=== PATIENT | male | born 1975 | race Caucasian/White ===

== ENCOUNTER 2020-08-16 13:19 | Inpatient (IN) | payer SELFPAY ==
[~2020-08-16] VITALS: Ht 172.7 cm; Wt 104.5 kg
[2020-08-16] MEDS ORDERED: IBUPROFEN 400 MG TABLET. PO ONE (14:15)
[2020-08-16] MEDS ORDERED: IV NORMAL SALINE 1000ML BAG 1,000 ML IV ONE ×2 (14:15→15:45)
--- NOTE | 2020-08-16 14:20 | PHYS DOC ---
General Adult EDM: Chief Complaint: FEVER HPI: HPI: Patient is a 44 year old male who presents with found out he was COVID positive last Tuesday. He states he is had symptoms for the last 7 days. He states he has a cough and fever and lack of appetite. He states he has not been eating or drinking much. Patient is tachycardic at 114. He states he does not have any pain. Patient denies nausea, vomiting, abdominal pain, dizziness, headache, chest pain, shortness of air, numbness or tingling, focal weakness, vision changes. He denies any past medical history and states he is not taking any medicine daily. He states that he took ibuprofen last yesterday. Patient is febrile upon arrival. Review of Systems: Review of Systems: Constitutional: + fever or chills. [] Eyes: Denies change in visual acuity. [] HENT: Denies nasal congestion or sore throat. [] Respiratory: + cough or denies shortness of breath. [] Cardiovascular: Denies chest pain or edema. [] GI: Denies abdominal pain, nausea, vomiting, bloody stools or diarrhea. +Lack of appetite[] : Denies dysuria. [] Musculoskeletal: Denies back pain or joint pain. +Generalized weakness[] Integument: Denies rash. [] Neurologic: Denies headache, focal weakness or sensory changes. [] Endocrine: Denies polyuria or polydipsia. [] Lymphatic: Denies swollen glands. [] Psychiatric: Denies depression or anxiety. [] Heart Score: Risk Factors: Risk Factors: DM, Current or recent (<one month) smoker, HTN, HLP, family history of CAD, obesity. Risk Scores: Score 0 - 3: 2.5% MACE over next 6 weeks - Discharge Home Score 4 - 6: 20.3% MACE over next 6 weeks - Admit for Clinical Observation Score 7 - 10: 72.7% MACE over next 6 weeks - Early Invasive Strategies Allergies: Allergies: Allergies Coded Allergies Type Severity Reaction Last Updated Verified No Known Drug Allergies 08/16/20 No Physical Exam: PE: Constitutional: Well developed, well nourished, no acute distress, non-toxic appearance. [] HENT: Normocephalic, atraumatic, bilateral external ears normal, oropharynx moist, no oral exudates, nose normal. [] Eyes: PERRLA, EOMI, conjunctiva normal, no discharge. [] Neck: Normal range of motion, no tenderness, supple, no stridor. [] Cardiovascular:Heart rate regular rhythm, no murmur [] Lungs & Thorax: Bilateral breath sounds clear to auscultation [] Abdomen: Bowel sounds normal, soft, no tenderness, no masses, no pulsatile masses. [] Skin: Warm, dry, no erythema, no rash. [] Back: No tenderness, no CVA tenderness. [] Extremities: No tenderness, no cyanosis, no clubbing, ROM intact, no edema. [] Neurologic: Alert and oriented X 3, normal motor function, normal sensory function, no focal deficits noted. [] Psychologic: Affect normal, judgement normal, mood normal. Normal Physical Exam[] EKG: EK and read by Dr Wallace as Sinus Tachycardia and no STEMI[] Radiology/Procedures: Radiology/Procedures: [] Impression: [address] [address] IMAGING REPORT Signed PATIENT: ROME BARLOW JACCOUNT: [id number] : 1975 LOCATION: ER AGE: 44 SEX: M EXAM STATUS: REG ER ORD. PHYSICIAN: KELLY BARROSO APRN REASON: covid +, soa PROCEDURE: PORTABLE CHEST 1V EXAMINATION: PORTABLE CHEST 1V CLINICAL HISTORY: Reason: covid +, soa / Spl. Instructions: / History: EXAM DATE/TIME: 08/16/2020 2:14 PM COMPARISON: None FINDINGS: Lines, Tubes, and Devices: None. Cardiomediastinal Silhouette: Within normal limits. Lungs and Pleura: Pulmonary hypoexpansion without evidence of focal airspace consolidation or pleural effusion. Bones and Soft Tissues: No acute osseous abnormality. IMPRESSION: Pulmonary hypoexpansion without evidence of acute cardiopulmonary abnormality. Electronically signed by: Khris Crooks DO (08/16/2020 3:50 PM) [id number] DICTATED and SIGNED BY: KHRIS CROOKS DO DATE: 08/16/[address] [address] IMAGING REPORT Signed PATIENT: ROME BARLOW JACCOUNT: [id number] : 1975 LOCATION: ER AGE: 44 SEX: M EXAM STATUS: REG ER ORD. PHYSICIAN: KELLY BARROSO APRN REASON: LOW o2 PROCEDURE: CT ANGIO CHEST W ABD PEL W/ EXAM: CT Pulmonary Angiogram INDICATION: Reason: LOW o2 / Spl. Instructions: / History: TECHNIQUE: Multi-detector row images were acquired from the thoracic inlet through the upper abdomen with the use of IV contrast. Sagittal and coronal images were acquired from the transaxial data. MIP images of the pulmonary arteries were obtained. All CT scans performed at this facility utilize dose optimization techniques as appropriate to the exam, including the following: Automated exposure control and adjustment of the mA and/or KV according to patient size (this includes techniques or standardized protocols for targeted exams where dose is indication/reason for exam). IV CONTRAST: Administered COMPARISON: Portable chest x-ray from earlier the same day. FINDINGS: There is respiratory motion artifact that degrades detail. PULMONARY ARTERIES: No pulmonary emboli are identified. CARDIOVASCULAR: Mild cardiac enlargement. Aorta is normal caliber. MEDIASTINUM & RAINE: No adenopathy or masses. Mild enlargement of the right interlobar lymph nodes up to 1.2 cm short axis. Mild reactive bilateral left greater than right hilar adenopathy. LUNGS: Patchy groundglass opacities are present bilaterally. PLEURAL SPACE: No pleural effusions or pneumothorax. OSSEOUS & SOFT TISSUE: Unremarkable ABDOMEN: The visualized portions of the upper abdomen are unremarkable. IMPRESSION: 1. Cardiomegaly but no evidence of pulmonary emboli. 2. Patchy groundglass opacities in the lungs in a pattern suspicious for atypical pneumonia, with associated reactive adenopathy.. EXAM: CT Abdomen and Pelvis with IV contrast INDICATION: Reason: LOW o2 / Spl. Instructions: / History: TECHNIQUE: Multi-detector row CT images were acquired from the lung bases through the abdomen and pelvis with the use of IV contrast. Sagittal and coronal images were acquired from the transaxial data. All CT scans performed at this facility utilize dose optimization techniques as appropriate to the exam, including the following: Automated exposure control and adjustment of the mA and/or KV according to patient size (this includes techniques or standardized protocols for targeted exams where dose is indication/reason for exam). IV CONTRAST: Administered ORAL CONTRAST: Not administered COMPARISON: None FINDINGS: LOWER CHEST: Unremarkable LIVER: Diffuse hypoattenuation suggesting fatty infiltration. BILIARY SYSTEM: Gallbladder is unremarkable. Bile ducts are not dilated. PANCREAS: Fatty replacement of the pancreas. SPLEEN: Unremarkable ADRENALS: Unremarkable KIDNEYS & URETERS: Unremarkable BLADDER: Unremarkable REPRODUCTIVE ORGANS: Unremarkable GASTROINTESTINAL: The stomach, small bowel, and colon are unremarkable. The appendix is normal. MESENTERY/PERITONEUM/RETROPERITONEUM: Unremarkable VASCULAR: Unremarkable LYMPH NODES: No adenopathy OSSEOUS & SOFT TISSUES: Unremarkable IMPRESSION: No acute findings in the abdomen or pelvis besides hepatic steatosis. There is incidental fatty replacement of the pancreas. Correlate for any evidence of exocrine or endocrine pancreatic insufficiency. Discussed with Dr. Do by telephone at 6:53 PM on 08/16/2020 Electronically signed by: Peg Matute MD (08/16/2020 6:55 PM) [facility] [place] DICTATED and SIGNED BY: PEG MATUTE MD DATE: 08/16/201854 Course & Med Decision Making: Course & Med Decision Making Pertinent Labs and Imaging studies reviewed. (See chart for details) COVID-19 CRITERIA: The patient was evaluated during the global COVID-19 pandemic, and that diagnosis was suspected/considered upon their initial presentation. Their evaluation, treatment and testing was consistent with current guidelines for patients who present with complaints or symptoms that may be related to COVID-19. See HPI. Ambulatory with a steady gait. Speaks in full complete sentences. Lungs are clear to auscultation in all lobes. Skin pink warm and dry. Tachycardic. Alert and oriented x4. Urinalysis shows nitrites. Patient is satting at 91% when sitting on room air. Patient is 90% when walking around the room. Continues to be tachycardic and tachypneic. I have ordered Rocephin for the patient. Due to the patient's low saturation and nitrites in his urine without urinary symptoms and he continues to be tachycardic, a CT angio chest and a CT abdomen pelvis is ordered. I have spoken to Dr. Carpio for admission. [] Alisson Disclaimer: [place] Disclaimer: This electronic medical record was generated, in whole or in part, using a voice recognition dictation system. COVID-19 Patient Risks: Age 65 or older: No Sign of co-morbidity: Yes Exp to person + for COVID: Yes Exp to PUI: No Travel from affected area: No Lower respiratory symptoms: Yes Fever: Yes Other: Yes (COVID +) PPE Use: Full PPE with N95 mask or PAPR: Yes Departure Departure Impression: Primary Impression: COVID-19 Additional Impressions: UTI (urinary tract infection) Qualified Codes: N39.0 - Urinary tract infection, site not specified Hypoxia Disposition: 09 ADMITTED INPATIENT Condition: STABLE KELLY BARROSO APRN Aug 16, 2020 14:20
[2020-08-16 14:43] LABS: BASO % 1 % (0-3); EOS % 0 % (0-3); HEMATOCRIT 41.7 % (39.0-53.0); HEMOGLOBIN 14.3 g/dL (13.0-17.5); LYMPH # 1.1 x10^3/uL (1.0-4.8); LYMPH % 22 % (24-48); MEAN CORPUSCULAR HEMOGLOBIN 28 pg (25-35); MEAN CORPUSCULAR HGB CONC 34 g/dL (31-37); MEAN CORPUSCULAR VOLUME 81 fL (79-100); MONO # 0.5 x10^3/uL (0.0-1.1); MONO % 10 % (0-9); NEUT # 3.3 x10^3/uL (1.8-7.7); NEUT % 68 % (31-73); PLATELET COUNT 136 x10^3/uL (140-400); RED BLOOD COUNT 5.13 x10^6/uL (4.30-5.70); RED CELL DISTRIBUTION WIDTH 14.3 % (11.5-14.5); WHITE BLOOD COUNT 4.9 x10^3/uL (4.0-11.0)
[2020-08-16 14:53] LABS: CALCIUM 8.2 mg/dL (8.5-10.1); CREATININE 0.9 mg/dL (0.7-1.3); GFR 91.3; POTASSIUM 3.5 mmol/L (3.5-5.1)
[2020-08-16 14:57] LABS: ALBUMIN 3.3 g/dL (3.4-5.0); ALBUMIN/GLOBULIN RATIO 0.8 (1.0-1.7); TOTAL BILIRUBIN 0.6 mg/dL (0.2-1.0); TOTAL PROTEIN 7.4 g/dL (6.4-8.2)
--- NOTE | 2020-08-16 15:53 | RAD ---
EXAMINATION: PORTABLE CHEST 1V CLINICAL HISTORY: Reason: covid +, soa / Spl. Instructions: / History: EXAM DATE/TIME: 08/16/2020 2:14 PM COMPARISON: None FINDINGS: Lines, Tubes, and Devices: None. Cardiomediastinal Silhouette: Within normal limits. Lungs and Pleura: Pulmonary hypoexpansion without evidence of focal airspace consolidation or pleural effusion. Bones and Soft Tissues: No acute osseous abnormality. IMPRESSION: Pulmonary hypoexpansion without evidence of acute cardiopulmonary abnormality. Electronically signed by: Khris Woodard DO (08/16/2020 3:50 PM) [id number]
[2020-08-16 16:08] LABS: BILIRUBIN,URINE SMALL (NEG); CLARITY,URINE CLEAR; COLOR,URINE AMBER; NITRITE,URINE POSITIVE (NEG); PROTEIN,URINE 30 mg/dL (NEG-TRACE)
[2020-08-16 16:13] LABS: BACTERIA,URINE MANY /HPF (0-FEW); RBC,URINE 0 /HPF (0-2)
[2020-08-16] MEDS ORDERED: cefTRIAXone IV Push 1 GM VIAL. IVP ONE (16:30)
[2020-08-16] MEDS ORDERED: CONTRAST GIVEN. MC PRN (17:15)
[2020-08-16] MEDS ORDERED: IOHEXOL 350 MG/ML 100 ML VIAL. IV ONE (17:15)
--- NOTE | 2020-08-16 17:58 | PDOC1 ---
History and Physical Date of Admission Date of Admission DATE: 08/16/20 TIME: 17:55 Identification/Chief Complaint Chief Complaint Fever Source Source: Patient History of Present Illness History of Present Illness Mr Roberts is a 44yo M w/ PMHx morbid obesity, autism spectrum disorder who comes to ED c/o shortness of breath. Tested positive for COVID 19 last 08/11/2020 at a [facility], was informed about the results on 08/13/2020. He has noted fever, decreased appetite, shortness ofb breath and cough for the last week. The patient was brought into the hospital by his father due to fever. No N/V/D or abdominal pain. No chest pain CTPA with bilateral patchy ground-glass infiltrates with adenopathy and incidental fatty liver and fatty infiltration of pancreas noted as well. Labs with WBC 5.9, hemoglobin 14.3 and platelets 136. LFTs are normal. Albumin 3.3. D dimer mildly elevated. Admitted for further care RR 26/min and temp 100.3F in ED. Past Medical History Psych: Other (Autism spectrum disorder) Past Surgical History Past Surgical History: No pertinent history Family History Family History: High Cholestrol, Hypertension Social History Smoke: No ALCOHOL: none Drugs: None Current Medications Current Medications Current Medications Sodium Chloride 1,000 ml @ 1,000 mls/hr 1X ONCE IV Last administered on 08/16/20at 14:43; Start 08/16/20 at 14:15; Stop 08/16/20 at 15:14; Status DC Ibuprofen (Motrin) 800 mg 1X ONCE PO Last administered on 08/16/20at 14:41; Start 08/16/20 at 14:15; Stop 08/16/20 at 14:17; Status DC Sodium Chloride 1,000 ml @ 1,000 mls/hr 1X ONCE IV Last administered on 08/16/20at 15:54; Start 08/16/20 at 15:45; Stop 08/16/20 at 16:44; Status DC Ceftriaxone Sodium (Rocephin) 1 gm 1X ONCE IVP Last administered on 08/16/20at 17:38; Start 08/16/20 at 16:30; Stop 08/16/20 at 16:31; Status DC Iohexol (Omnipaque 350 Mg/ml) 100 ml 1X ONCE IV Last administered on 10/3/20at 17:36; Start 08/16/20 at 17:15; Stop 08/16/20 at 17:16; Status DC Info (CONTRAST GIVEN -- Rx MONITORING) 1 each PRN DAILY PRN MC SEE COMMENTS; Start 08/16/20 at 17:15; Stop 08/18/20 at 17:14 Allergies Allergies: Coded Allergies: No Known Drug Allergies (Unverified , 08/16/20) ROS General: YES: Chills, Fatigue, Malaise, Appetite; No: Night Sweats, Other PSYCHOLOGICAL ROS: YES: Anxiety; No: Behavioral Disorder, Concentration difficultie, Decreased libido, Depression, Disorientation, Hallucinations, Hostility, Irritablity, Memory difficulties, Mood Swings, Obsessive thoughts, Physical abuse, Sexual abuse, Sleep disturbances, Suicidal ideation, Other Eyes: No Blurry vision, No Decreased vision, No Double vision, No Dry eyes, No Excessive tearing, No Eye Pain, No Itchy Eyes, No Loss of vision, No Photophobia, No Scotomata, No Uses contacts, No Uses glasses, No Other HEENT: YES: Heacaches; No: Visual Changes, Hearing change, Nasal congestion, Nasal discharge, Oral lesions, Sinus pain, Sore Throat, Epistaxis, Sneezing, Snoring, Tinnitus, Vertigo, Vocal changes, Other ALLERGY AND IMMUNOLOGY: No: Hives, Insect Bite Sensitivity, Itchy/Watery Eyes, Nasal Congestion, Post Nasal Drip, Seasonal Allergies, Other Hematological and Lymphatic: No: Bleeding Problems, Blood Clots, Blood Transfusions, Brusing, Night Sweats, Pallor, Swollen Lymph Nodes, Other ENDOCRINE: No: Breast Changes, Galactorrhea, Hair Pattern Changes, Hot Flashes, Malaise/lethargy, Mood Swings, Palpitations, Polydipsia/polyuria, Skin Changes, Temperature Intolerance, Unexpected Weight Changes, Other Breast: No New/Changing Breast Lumps, No Nipple changes, No Nipple discharge, No Other Respiratory: YES: Cough, Shortness of breath, SOB with excertion, Tachypnea; No: Hemoptysis, Orthopnea, Pleuritic Pain, Sputum Changes, Stridor, Wheezing, Other Cardiovascular: No Chest Pain, No Palpitations, No Orthopnea, No Paroxysmal Noc. Dyspnea, No Edema, No Lt Headedness, No Other Gastrointestinal: Yes Nausea; No Vomiting, No Abdominal Pain, No Diarrhea, No Constipation, No Melena, No Hematochezia, No Other Genitourinary: No Dysuria, No Frequency, No Incontinence, No Hematuria, No Retention, No Discharge, No Urgency, No Pain, No Flank Pain, No Other, No , No , No , No , No , No , No Musculoskeletal: No Gait Disturbance, No Joint Pain, No Joint Stiffness, No Joint Swelling, No Muscle Pain, No Muscular Weakness, No Pain In:, No Swelling In:, No Other Neurological: No Behavorial Changes, No Bowel/Bladder ControlChng, No Confusion, No Dizziness, No Gait Disturbance, No Headaches, No Impaired Coord/balance, No Memory Loss, No Numbness/Tingling, No Seizures, No Speech Problems, No Tremors, No Visual Changes, No Weakness, No Other Skin: No Dry Skin, No Eczema, No Hair Changes, No Lumps, No Mole Changes, No Mottling, No Nail Changes, No Pruritus, No Rash, No Skin Lesion Changes, No Other, No Acne Physical Exam General: Alert, Oriented X3, Cooperative, moderate distress HEENT: Atraumatic, PERRLA, EOMI, Mucous membr. moist/pink Lungs: Other (bilateral faint crackles) Heart: S1S2, RRR, no thrills, no rubs, no gallops, no murmurs Abdomen: Normal bowel sounds, Soft, No tenderness, No hepatosplenomegaly, No masses Rectal Exam: not examined Extremities: No clubbing, No cyanosis, No edema, Normal pulses, No tenderness/swelling Skin: No rashes, No breakdown, No significant lesion Neuro: Normal gait, Normal speech, Strength at 5/5 X4 ext, Normal tone, Sensation intact, Cranial nerves 3-12 NL, Reflexes 2+ Psych/Mental Status: Mental status NL, Mood NL, Other (Avoidant, no eye contact) Vitals Vitals Vital Signs Date Time Temp Pulse Resp B/P (MAP) Pulse Ox O2 Delivery O2 Flow Rate FiO2 08/16/20 14:10 100.3 111 26 143/80 (101) 95 Room Air 100.3 Labs Labs Laboratory Tests Test 08/16/20 14:33 08/16/20 15:50 White Blood Count 4.9 x10^3/uL (4.0-11.0) Red Blood Count 5.13 x10^6/uL (4.30-5.70) Hemoglobin 14.3 g/dL (13.0-17.5) Hematocrit 41.7 % (39.0-53.0) Mean Corpuscular Volume 81 fL (79-100) Mean Corpuscular Hemoglobin 28 pg (25-35) Mean Corpuscular Hemoglobin Concent 34 g/dL (31-37) Red Cell Distribution Width 14.3 % (11.5-14.5) Platelet Count 136 x10^3/uL (140-400) Neutrophils (%) (Auto) 68 % (31-73) Lymphocytes (%) (Auto) 22 % (24-48) Monocytes (%) (Auto) 10 % (0-9) Eosinophils (%) (Auto) 0 % (0-3) Basophils (%) (Auto) 1 % (0-3) Neutrophils # (Auto) 3.3 x10^3/uL (1.8-7.7) Lymphocytes # (Auto) 1.1 x10^3/uL (1.0-4.8) Monocytes # (Auto) 0.5 x10^3/uL (0.0-1.1) Eosinophils # (Auto) 0.0 x10^3/uL (0.0-0.7) Basophils # (Auto) 0.0 x10^3/uL (0.0-0.2) Sodium Level 135 mmol/L (136-145) Potassium Level 3.5 mmol/L (3.5-5.1) Chloride Level 98 mmol/L (98-107) Carbon Dioxide Level 28 mmol/L (21-32) Anion Gap 9 (6-14) Blood Urea Nitrogen 10 mg/dL (8-26) Creatinine 0.9 mg/dL (0.7-1.3) Estimated GFR (Cockcroft-Gault) 91.3 BUN/Creatinine Ratio 11 (6-20) Glucose Level 89 mg/dL (70-99) Lactic Acid Level 1.1 mmol/L (0.4-2.0) Calcium Level 8.2 mg/dL (8.5-10.1) Total Bilirubin 0.6 mg/dL (0.2-1.0) Aspartate Amino Transf (AST/SGOT) 34 U/L (15-37) Alanine Aminotransferase (ALT/SGPT) 36 U/L (16-63) Alkaline Phosphatase 60 U/L (46-116) Total Protein 7.4 g/dL (6.4-8.2) Albumin 3.3 g/dL (3.4-5.0) Albumin/Globulin Ratio 0.8 (1.0-1.7) Urine Collection Type Void Urine Color Ivone Urine Clarity Clear Urine pH 6.0 (<5.0-8.0) Urine Specific [place] 1.025 (1.000-1.030) Urine Protein 30 mg/dL (NEG-TRACE) Urine Glucose (UA) Negative mg/dL (NEG) Urine Ketones (Stick) >=80 mg/dL (NEG) Urine Blood Negative (NEG) Urine Nitrite Positive (NEG) Urine Bilirubin Small (NEG) Urine Urobilinogen Dipstick 4.0 mg/dL (0.2 mg/dL) Urine Leukocyte Esterase Small (NEG) Urine RBC 0 /HPF (0-2) Urine WBC 5-10 /HPF (0-4) Urine Squamous Epithelial Cells None /LPF Urine Bacteria Many /HPF (0-FEW) Urine Mucus Slight /LPF Laboratory Tests Test 08/16/20 14:33 08/16/20 15:50 White Blood Count 4.9 x10^3/uL (4.0-11.0) Red Blood Count 5.13 x10^6/uL (4.30-5.70) Hemoglobin 14.3 g/dL (13.0-17.5) Hematocrit 41.7 % (39.0-53.0) Mean Corpuscular Volume 81 fL (79-100) Mean Corpuscular Hemoglobin 28 pg (25-35) Mean Corpuscular Hemoglobin Concent 34 g/dL (31-37) Red Cell Distribution Width 14.3 % (11.5-14.5) Platelet Count 136 x10^3/uL (140-400) Neutrophils (%) (Auto) 68 % (31-73) Lymphocytes (%) (Auto) 22 % (24-48) Monocytes (%) (Auto) 10 % (0-9) Eosinophils (%) (Auto) 0 % (0-3) Basophils (%) (Auto) 1 % (0-3) Neutrophils # (Auto) 3.3 x10^3/uL (1.8-7.7) Lymphocytes # (Auto) 1.1 x10^3/uL (1.0-4.8) Monocytes # (Auto) 0.5 x10^3/uL (0.0-1.1) Eosinophils # (Auto) 0.0 x10^3/uL (0.0-0.7) Basophils # (Auto) 0.0 x10^3/uL (0.0-0.2) Sodium Level 135 mmol/L (136-145) Potassium Level 3.5 mmol/L (3.5-5.1) Chloride Level 98 mmol/L (98-107) Carbon Dioxide Level 28 mmol/L (21-32) Anion Gap 9 (6-14) Blood Urea Nitrogen 10 mg/dL (8-26) Creatinine 0.9 mg/dL (0.7-1.3) Estimated GFR (Cockcroft-Gault) 91.3 BUN/Creatinine Ratio 11 (6-20) Glucose Level 89 mg/dL (70-99) Lactic Acid Level 1.1 mmol/L (0.4-2.0) Calcium Level 8.2 mg/dL (8.5-10.1) Total Bilirubin 0.6 mg/dL (0.2-1.0) Aspartate Amino Transf (AST/SGOT) 34 U/L (15-37) Alanine Aminotransferase (ALT/SGPT) 36 U/L (16-63) Alkaline Phosphatase 60 U/L (46-116) Total Protein 7.4 g/dL (6.4-8.2) Albumin 3.3 g/dL (3.4-5.0) Albumin/Globulin Ratio 0.8 (1.0-1.7) Urine Collection Type Void Urine Color Ivone Urine Clarity Clear Urine pH 6.0 (<5.0-8.0) Urine Specific [place] 1.025 (1.000-1.030) Urine Protein 30 mg/dL (NEG-TRACE) Urine Glucose (UA) Negative mg/dL (NEG) Urine Ketones (Stick) >=80 mg/dL (NEG) Urine Blood Negative (NEG) Urine Nitrite Positive (NEG) Urine Bilirubin Small (NEG) Urine Urobilinogen Dipstick 4.0 mg/dL (0.2 mg/dL) Urine Leukocyte Esterase Small (NEG) Urine RBC 0 /HPF (0-2) Urine WBC 5-10 /HPF (0-4) Urine Squamous Epithelial Cells None /LPF Urine Bacteria Many /HPF (0-FEW) Urine Mucus Slight /LPF Images Images CXR: CT Angiogram Chest/abdomen/pelvis: There is respiratory motion artifact that degrades detail. PULMONARY ARTERIES: No pulmonary emboli are identified. CARDIOVASCULAR: Mild cardiac enlargement. Aorta is normal caliber. MEDIASTINUM & RAINE: No adenopathy or masses. Mild enlargement of the right interlobar lymph nodes up to 1.2 cm short axis. Mild reactive bilateral left greater than right hilar adenopathy. LUNGS: Patchy groundglass opacities are present bilaterally. PLEURAL SPACE: No pleural effusions or pneumothorax. OSSEOUS & SOFT TISSUE: Unremarkable ABDOMEN: The visualized portions of the upper abdomen are unremarkable. IMPRESSION: 1. Cardiomegaly but no evidence of pulmonary emboli. 2. Patchy groundglass opacities in the lungs in a pattern suspicious for atypical pneumonia, with associated reactive adenopathy. CT Abdomen and Pelvis with IV contrast LOWER CHEST: Unremarkable LIVER: Diffuse hypoattenuation suggesting fatty infiltration. BILIARY SYSTEM: Gallbladder is unremarkable. Bile ducts are not dilated. PANCREAS: Fatty replacement of the pancreas. SPLEEN: Unremarkable ADRENALS: Unremarkable KIDNEYS & URETERS: Unremarkable BLADDER: Unremarkable REPRODUCTIVE ORGANS: Unremarkable GASTROINTESTINAL: The stomach, small bowel, and colon are unremarkable. The appendix is normal. MESENTERY/PERITONEUM/RETROPERITONEUM: Unremarkable VASCULAR: Unremarkable LYMPH NODES: No adenopathy OSSEOUS & SOFT TISSUES: Unremarkable IMPRESSION: No acute findings in the abdomen or pelvis besides hepatic steatosis.There is incidental fatty replacement of the pancreas. Correlate for any evidence of exocrine or endocrine pancreatic insufficiency. VTE Prophylaxis Ordered VTE Prophylaxis Devices: No VTE Pharmacological Prophylaxi: Yes Assessment/Plan Assessment/Plan A/P: Fevers - COVID 19 related. Will treat expectantly COVID 19 - with pneumonia. No hypoxia, will monitor. thromboprophylaxis. Consult Pulm Fatty liver - likely related to weight Elevated d dimer Autism spectrum disorder - mild, will give prn lorazepam for anxiety related to this Morbid obesity - counseled on weight loss, diet exercise Sepsis - due to COVID 19 pneumonia. Will treat expectantly, monitor for O2 desaturations FEN - General diet PPX - lovenox FULL CODE Dispo - Inpatient will monitor O2 levels to asses need for steroids or FFP Justifications for Admission Other Justification ROME LANDIS MD Aug 16, 2020 17:58
[2020-08-16] MEDS ORDERED: ACETAMINOPHEN 325 MG TABLET. PO PRN (18:15)
[2020-08-16] MEDS ORDERED: ONDANSETRON PF 4 MG/2 ML VIAL. IV PRN (18:15)
--- NOTE | 2020-08-16 18:58 | RAD ---
EXAM: CT Pulmonary Angiogram INDICATION: Reason: LOW o2 / Spl. Instructions: / History: TECHNIQUE: Multi-detector row images were acquired from the thoracic inlet through the upper abdomen with the use of IV contrast. Sagittal and coronal images were acquired from the transaxial data. MIP images of the pulmonary arteries were obtained. All CT scans performed at this facility utilize dose optimization techniques as appropriate to the exam, including the following: Automated exposure control and adjustment of the mA and/or KV according to patient size (this includes techniques or standardized protocols for targeted exams where dose is indication/reason for exam). IV CONTRAST: Administered COMPARISON: Portable chest x-ray from earlier the same day. FINDINGS: There is respiratory motion artifact that degrades detail. PULMONARY ARTERIES: No pulmonary emboli are identified. CARDIOVASCULAR: Mild cardiac enlargement. Aorta is normal caliber. MEDIASTINUM & RAINE: No adenopathy or masses. Mild enlargement of the right interlobar lymph nodes up to 1.2 cm short axis. Mild reactive bilateral left greater than right hilar adenopathy. LUNGS: Patchy groundglass opacities are present bilaterally. PLEURAL SPACE: No pleural effusions or pneumothorax. OSSEOUS & SOFT TISSUE: Unremarkable ABDOMEN: The visualized portions of the upper abdomen are unremarkable. IMPRESSION: 1. Cardiomegaly but no evidence of pulmonary emboli. 2. Patchy groundglass opacities in the lungs in a pattern suspicious for atypical pneumonia, with associated reactive adenopathy.. EXAM: CT Abdomen and Pelvis with IV contrast INDICATION: Reason: LOW o2 / Spl. Instructions: / History: TECHNIQUE: Multi-detector row CT images were acquired from the lung bases through the abdomen and pelvis with the use of IV contrast. Sagittal and coronal images were acquired from the transaxial data. All CT scans performed at this facility utilize dose optimization techniques as appropriate to the exam, including the following: Automated exposure control and adjustment of the mA and/or KV according to patient size (this includes techniques or standardized protocols for targeted exams where dose is indication/reason for exam). IV CONTRAST: Administered ORAL CONTRAST: Not administered COMPARISON: None FINDINGS: LOWER CHEST: Unremarkable LIVER: Diffuse hypoattenuation suggesting fatty infiltration. BILIARY SYSTEM: Gallbladder is unremarkable. Bile ducts are not dilated. PANCREAS: Fatty replacement of the pancreas. SPLEEN: Unremarkable ADRENALS: Unremarkable KIDNEYS & URETERS: Unremarkable BLADDER: Unremarkable REPRODUCTIVE ORGANS: Unremarkable GASTROINTESTINAL: The stomach, small bowel, and colon are unremarkable. The appendix is normal. MESENTERY/PERITONEUM/RETROPERITONEUM: Unremarkable VASCULAR: Unremarkable LYMPH NODES: No adenopathy OSSEOUS & SOFT TISSUES: Unremarkable IMPRESSION: No acute findings in the abdomen or pelvis besides hepatic steatosis. There is incidental fatty replacement of the pancreas. Correlate for any evidence of exocrine or endocrine pancreatic insufficiency. Discussed with Dr. Do by telephone at 6:53 PM on 08/16/2020 Electronically signed by: Daniel Matute MD (08/16/2020 6:55 PM) [facility] [place]
[2020-08-16 20:50] VITALS: BP 127/77
[2020-08-16] MEDS ORDERED: cefTRIAXone IV Push 1 GM VIAL. IVP SCH (22:30)
--- NOTE | 2020-08-16 22:41 | CONS ---
DATE OF CONSULTATION: 08/16/2020 PULMONARY CONSULTATION ATTENDING PHYSICIAN: Florentin Carpio MD REASON FOR CONSULTATION: COVID-19 pneumonia. HISTORY OF PRESENT ILLNESS: The patient is a 44-year-old male who has no significant tobacco history. He was tested positive for COVID last Tuesday. The patient states symptoms have been present for last 7 days. He has a fever and a cough and lack of appetite. The patient was brought into the hospital due to fever. Denies any increased shortness of breath. No nausea, vomiting. No abdominal pain, no diarrhea, no chest pain. He denies any history of tobacco use or asthma. The patient underwent a CT chest, abdomen and pelvis. I have reviewed the CT chest. There are patchy ground-glass opacities in the lungs, suspicious for COVID-19 pneumonia. There was mild reactive adenopathy. I did the consultation via telemedicine. PAST MEDICAL HISTORY: Significant for no chronic medical problems. PAST SURGICAL HISTORY: No recent surgeries. ALLERGIES: None. CURRENT MEDICATIONS: Reviewed as listed in the [facility]AD including Rocephin, which he received in the ER. REVIEW OF SYSTEMS: Ten point system obtained. Pertinent positives discussed in my history of present illness, otherwise noncontributory. All systems that were negative were reviewed as well. SOCIAL HISTORY: No history of tobacco use. FAMILY HISTORY: Noncontributory to lungs. PHYSICAL EXAMINATION: VITAL SIGNS: Reviewed. He is afebrile now, but he had a T-max of 100.3 on admission. Pulse ox 93-95% on room air. GENERAL: Visual exam done. He does not appear to be in any obvious respiratory distress. SKIN: No obvious skin rash. EXTREMITIES: No leg edema. LABORATORY DATA: Reviewed. White cell count 5.9, hemoglobin 14.3 and platelets are 136. LFTs are normal. Albumin 3.3. IMPRESSION: 1. Dyspnea secondary to COVID-19 pneumonia,. [address] chest secondary to COVID-19 pneumonia with bilateral patchy infiltrates, which are ground-glass. 3. No significant tobacco history or asthma. RECOMMENDATIONS: 1. The patient is clinically stable. He is on room air and is not hypoxic. At this point, I will withhold steroids or plasma. 2. We will monitor the clinical course. 3. Continue empiric antibiotic. 4. We will be available for any further recommendations if the patient's clinical condition changes. 5. If the patient remains afebrile in the next 24-48 hours, then he could be discharged. BECCA NORTH MD DR: MAINE/leonarda JOB#: [id number] / [id number]
[2020-08-16] MEDS ORDERED: guaiFENesin DM 200MG/20MG 10 ML SYRUP PO PRN (23:00)
[2020-08-16 23:05] VITALS: BP 145/79
[2020-08-17 03:05] VITALS: BP 140/76
[2020-08-17 07:15] VITALS: BP 129/69
--- NOTE | 2020-08-17 08:55 | PDOC ---
[employer] PROGRESS NOTE Date of Service DOS: DATE: 08/17/20 TIME: 08:54 Chief Complaint Chief Complaint A/P: Fevers - COVID 19 related. Will treat expectantly COVID 19 - with pneumonia. No hypoxia, will monitor. thromboprophylaxis. Consult Pulm Fatty liver - likely related to weight Elevated d dimer Autism spectrum disorder - mild, will give prn lorazepam for anxiety related to this Morbid obesity - counseled on weight loss, diet exercise Sepsis - due to COVID 19 pneumonia. Will treat expectantly, monitor for O2 desaturations UTI in male - will d/c on cefdinir 14 caps FEN - General diet PPX - lovenox FULL CODE Dispo - Inpatient will monitor O2 levels to asses need for steroids or FFP History of Present Illness History of Present Illness Mr Roberts is a 44yo M w/ PMHx morbid obesity, autism spectrum disorder who comes to ED c/o shortness of breath. Tested positive for COVID 19 last 08/11/2020 at a [facility], was informed about the results on 08/13/2020. He has noted fever, decreased appetite, shortness of breath and cough for the last week. The patient was brought into the hospital by his father due to fever. No N/V/D or abdominal pain. No chest pain. CTPA with bilateral patchy ground-glass infiltrates with adenopathy and incidental fatty liver and fatty infiltration of pancreas noted as well. Labs with WBC 5.9, hemoglobin 14.3 and platelets 136. LFTs are normal. Albumin 3.3. D dimer mildly elevated. UA with positive LE and nitrites. RR 26/min and temp 100.3F in ED. Afebrile overnight. No O2 requirements. After discussion with him and his family and is in formal diagnosis of autism spectrum disorder not having been employed since age 19 despite attempting to be employed he and they would feel more comfortable with him at home and as he has no O2 needs I am amenable to this with aspirin and sitting for discharge. I would be remiss if he did not have a referral to [facility] for formal diagnosis as he is not been employable for 25 years likely due to his mental health. This would deem him permanently disabled. Vitals/I&O Vitals/I&O: Vital Signs Date Time Temp Pulse Resp B/P (MAP) Pulse Ox O2 Delivery O2 Flow Rate FiO2 10/4/20 07:15 98.5 119 16 129/69 (89) 98 Room Air 98.5 08/16/20 23:45 3.0 I & O 08/16/20 08/16/20 08/17/20 15:00 23:00 07:00 Intake Total 2000 ml Output Total 575 ml Balance 2000 ml -575 ml Physical Exam General: Alert, Oriented X3, Cooperative, moderate distress Abdomen: Normal bowel sounds, Soft, No tenderness, No hepatosplenomegaly, No ma sses Extremities: No clubbing, No cyanosis, No edema, Normal pulses, No tenderness/swelling Skin: No rashes, No breakdown, No significant lesion Labs Labs: Laboratory Tests Test 08/16/20 14:33 08/16/20 15:50 White Blood Count 4.9 x10^3/uL (4.0-11.0) Red Blood Count 5.13 x10^6/uL (4.30-5.70) Hemoglobin 14.3 g/dL (13.0-17.5) Hematocrit 41.7 % (39.0-53.0) Mean Corpuscular Volume 81 fL (79-100) Mean Corpuscular Hemoglobin 28 pg (25-35) Mean Corpuscular Hemoglobin Concent 34 g/dL (31-37) Red Cell Distribution Width 14.3 % (11.5-14.5) Platelet Count 136 x10^3/uL (140-400) Neutrophils (%) (Auto) 68 % (31-73) Lymphocytes (%) (Auto) 22 % (24-48) Monocytes (%) (Auto) 10 % (0-9) Eosinophils (%) (Auto) 0 % (0-3) Basophils (%) (Auto) 1 % (0-3) Neutrophils # (Auto) 3.3 x10^3/uL (1.8-7.7) Lymphocytes # (Auto) 1.1 x10^3/uL (1.0-4.8) Monocytes # (Auto) 0.5 x10^3/uL (0.0-1.1) Eosinophils # (Auto) 0.0 x10^3/uL (0.0-0.7) Basophils # (Auto) 0.0 x10^3/uL (0.0-0.2) D-Dimer (Amie) 0.71 ug/mlFEU (0.00-0.50) Sodium Level 135 mmol/L (136-145) Potassium Level 3.5 mmol/L (3.5-5.1) Chloride Level 98 mmol/L (98-107) Carbon Dioxide Level 28 mmol/L (21-32) Anion Gap 9 (6-14) Blood Urea Nitrogen 10 mg/dL (8-26) Creatinine 0.9 mg/dL (0.7-1.3) Estimated GFR (Cockcroft-Gault) 91.3 BUN/Creatinine Ratio 11 (6-20) Glucose Level 89 mg/dL (70-99) Lactic Acid Level 1.1 mmol/L (0.4-2.0) Calcium Level 8.2 mg/dL (8.5-10.1) Total Bilirubin 0.6 mg/dL (0.2-1.0) Aspartate Amino Transf (AST/SGOT) 34 U/L (15-37) Alanine Aminotransferase (ALT/SGPT) 36 U/L (16-63) Alkaline Phosphatase 60 U/L (46-116) Total Protein 7.4 g/dL (6.4-8.2) Albumin 3.3 g/dL (3.4-5.0) Albumin/Globulin Ratio 0.8 (1.0-1.7) Urine Collection Type Void Urine Color Ivone Urine Clarity Clear Urine pH 6.0 (<5.0-8.0) Urine Specific H[place]ley 1.025 (1.000-1.030) Urine Protein 30 mg/dL (NEG-TRACE) Urine Glucose (UA) Negative mg/dL (NEG) Urine Ketones (Stick) >=80 mg/dL (NEG) Urine Blood Negative (NEG) Urine Nitrite Positive (NEG) Urine Bilirubin Small (NEG) Urine Urobilinogen Dipstick 4.0 mg/dL (0.2 mg/dL) Urine Leukocyte Esterase Small (NEG) Urine RBC 0 /HPF (0-2) Urine WBC 5-10 /HPF (0-4) Urine Squamous Epithelial Cells None /LPF Urine Bacteria Many /HPF (0-FEW) Urine Mucus Slight /LPF Assessment and Plan Assessmemt and Plan Problems Medical Problems: (1) COVID-19 Status: Acute (2) Hypoxia Status: Acute (3) UTI (urinary tract infection) Status: Acute Comment Review of Relevant I have reviewed the following items otto (where applicable) has been applied. Medications: Current Medications Medications (Trade) Dose Ordered Sig/Melanie Route PRN Reason Start Time Stop Time Status Last Admin Dose Admin Sodium Chloride 1,000 ml @ 1,000 mls/hr 1X ONCE IV 08/16/20 14:15 08/16/20 15:14 DC 08/16/20 14:43 Ibuprofen (Motrin) 800 mg 1X ONCE PO 08/16/20 14:15 08/16/20 14:17 DC 08/16/20 14:41 Sodium Chloride 1,000 ml @ 1,000 mls/hr 1X ONCE IV 08/16/20 15:45 08/16/20 16:44 DC 08/16/20 15:54 Ceftriaxone Sodium (Rocephin) 1 gm 1X ONCE IVP 08/16/20 16:30 08/16/20 16:31 DC 08/16/20 17:38 Iohexol (Omnipaque 350 Mg/ml) 100 ml 1X ONCE IV 08/16/20 17:15 08/16/20 17:16 DC 08/16/20 17:36 Justifications for Admission Other Justification ROME LANDIS MD Aug 17, 2020 08:55
[2020-08-17] MEDS ORDERED: ZINC SULFATE 220 MG CAPSULE. PO SCH (09:00)
[2020-08-17] MEDS ORDERED: FLU VACC QS 2020-21(6MOS+)/PF 0.5 ML SYRINGE. VAX IM ONE (09:00)
[2020-08-17] MEDS ORDERED: ENOXAPARIN 40 MG/0.4 ML SYRINGE. SQ SCH (09:00)
[2020-08-17 11:33] VITALS: BP 135/65
[2020-08-17 13:48] LABS: BASO % 0 % (0-3); EOS % 0 % (0-3); HEMOGLOBIN 14.1 g/dL (13.0-17.5); LYMPH # 0.9 x10^3/uL (1.0-4.8); LYMPH % 17 % (24-48); MEAN CORPUSCULAR HEMOGLOBIN 28 pg (25-35); MEAN CORPUSCULAR HGB CONC 34 g/dL (31-37); MEAN CORPUSCULAR VOLUME 82 fL (79-100); MONO # 0.5 x10^3/uL (0.0-1.1); MONO % 9 % (0-9); NEUT % 73 % (31-73); PLATELET COUNT 144 x10^3/uL (140-400); RED BLOOD COUNT 5.02 x10^6/uL (4.30-5.70); RED CELL DISTRIBUTION WIDTH 14.5 % (11.5-14.5); WHITE BLOOD COUNT 5.5 x10^3/uL (4.0-11.0)
[2020-08-17] MEDS ORDERED: CEFD300C PO (13:53)
[2020-08-17] MEDS ORDERED: ASPI-886 PO (13:53)
[2020-08-17] MEDS ORDERED: ZINC220C2 PO (13:53)
--- NOTE | 2020-08-17 14:07 | PDOC3 ---
Discharge Summary Visit Information Date of Admission: Aug 16, 2020 Date of Discharge: Aug 17, 2020 Admitting Diagnosis: COVID 19, UTI Final Diagnosis Problems Medical Problems: (1) COVID-19 Status: Acute (2) Hypoxia Status: Acute (3) UTI (urinary tract infection) Status: Acute Brief Hospital Course Allergies Allergies Coded Allergies Type Severity Reaction Last Updated Verified No Known Drug Allergies 08/16/20 No Vital Signs Vital Signs Date Time Temp Pulse Resp B/P (MAP) Pulse Ox O2 Delivery O2 Flow Rate FiO2 08/17/20 11:33 99.8 114 18 135/65 (88) 92 Room Air 99.8 08/16/20 23:45 3.0 Lab Results Laboratory Tests Test 08/16/20 14:33 08/16/20 15:50 08/17/20 12:50 White Blood Count 4.9 x10^3/uL (4.0-11.0) 5.5 x10^3/uL (4.0-11.0) Red Blood Count 5.13 x10^6/uL (4.30-5.70) 5.02 x10^6/uL (4.30-5.70) Hemoglobin 14.3 g/dL (13.0-17.5) 14.1 g/dL (13.0-17.5) Hematocrit 41.7 % (39.0-53.0) 41.0 % (39.0-53.0) Mean Corpuscular Volume 81 fL (79-100) 82 fL (79-100) Mean Corpuscular Hemoglobin 28 pg (25-35) 28 pg (25-35) Mean Corpuscular Hemoglobin Concent 34 g/dL (31-37) 34 g/dL (31-37) Red Cell Distribution Width 14.3 % (11.5-14.5) 14.5 % (11.5-14.5) Platelet Count 136 x10^3/uL (140-400) 144 x10^3/uL (140-400) Neutrophils (%) (Auto) 68 % (31-73) 73 % (31-73) Lymphocytes (%) (Auto) 22 % (24-48) 17 % (24-48) Monocytes (%) (Auto) 10 % (0-9) 9 % (0-9) Eosinophils (%) (Auto) 0 % (0-3) 0 % (0-3) Basophils (%) (Auto) 1 % (0-3) 0 % (0-3) Neutrophils # (Auto) 3.3 x10^3/uL (1.8-7.7) 4.0 x10^3/uL (1.8-7.7) Lymphocytes # (Auto) 1.1 x10^3/uL (1.0-4.8) 0.9 x10^3/uL (1.0-4.8) Monocytes # (Auto) 0.5 x10^3/uL (0.0-1.1) 0.5 x10^3/uL (0.0-1.1) Eosinophils # (Auto) 0.0 x10^3/uL (0.0-0.7) 0.0 x10^3/uL (0.0-0.7) Basophils # (Auto) 0.0 x10^3/uL (0.0-0.2) 0.0 x10^3/uL (0.0-0.2) D-Dimer (Amie) 0.71 ug/mlFEU (0.00-0.50) 0.65 ug/mlFEU (0.00-0.50) Sodium Level 135 mmol/L (136-145) Potassium Level 3.5 mmol/L (3.5-5.1) Chloride Level 98 mmol/L (98-107) Carbon Dioxide Level 28 mmol/L (21-32) Anion Gap 9 (6-14) Blood Urea Nitrogen 10 mg/dL (8-26) Creatinine 0.9 mg/dL (0.7-1.3) Estimated GFR (Cockcroft-Gault) 91.3 BUN/Creatinine Ratio 11 (6-20) Glucose Level 89 mg/dL (70-99) Lactic Acid Level 1.1 mmol/L (0.4-2.0) Calcium Level 8.2 mg/dL (8.5-10.1) Total Bilirubin 0.6 mg/dL (0.2-1.0) Aspartate Amino Transf (AST/SGOT) 34 U/L (15-37) Alanine Aminotransferase (ALT/SGPT) 36 U/L (16-63) Alkaline Phosphatase 60 U/L (46-116) Total Protein 7.4 g/dL (6.4-8.2) Albumin 3.3 g/dL (3.4-5.0) Albumin/Globulin Ratio 0.8 (1.0-1.7) Urine Collection Type Void Urine Color Ivone Urine Clarity Clear Urine pH 6.0 (<5.0-8.0) Urine Specific [place]asper 1.025 (1.000-1.030) Urine Protein 30 mg/dL (NEG-TRACE) Urine Glucose (UA) Negative mg/dL (NEG) Urine Ketones (Stick) >=80 mg/dL (NEG) Urine Blood Negative (NEG) Urine Nitrite Positive (NEG) Urine Bilirubin Small (NEG) Urine Urobilinogen Dipstick 4.0 mg/dL (0.2 mg/dL) Urine Leukocyte Esterase Small (NEG) Urine RBC 0 /HPF (0-2) Urine WBC 5-10 /HPF (0-4) Urine Squamous Epithelial Cells None /LPF Urine Bacteria Many /HPF (0-FEW) Urine Mucus Slight /LPF Laboratory Tests Test 08/16/20 14:33 08/16/20 15:50 08/17/20 12:50 White Blood Count 4.9 x10^3/uL (4.0-11.0) 5.5 x10^3/uL (4.0-11.0) Red Blood Count 5.13 x10^6/uL (4.30-5.70) 5.02 x10^6/uL (4.30-5.70) Hemoglobin 14.3 g/dL (13.0-17.5) 14.1 g/dL (13.0-17.5) Hematocrit 41.7 % (39.0-53.0) 41.0 % (39.0-53.0) Mean Corpuscular Volume 81 fL (79-100) 82 fL (79-100) Mean Corpuscular Hemoglobin 28 pg (25-35) 28 pg (25-35) Mean Corpuscular Hemoglobin Concent 34 g/dL (31-37) 34 g/dL (31-37) Red Cell Distribution Width 14.3 % (11.5-14.5) 14.5 % (11.5-14.5) Platelet Count 136 x10^3/uL (140-400) 144 x10^3/uL (140-400) Neutrophils (%) (Auto) 68 % (31-73) 73 % (31-73) Lymphocytes (%) (Auto) 22 % (24-48) 17 % (24-48) Monocytes (%) (Auto) 10 % (0-9) 9 % (0-9) Eosinophils (%) (Auto) 0 % (0-3) 0 % (0-3) Basophils (%) (Auto) 1 % (0-3) 0 % (0-3) Neutrophils # (Auto) 3.3 x10^3/uL (1.8-7.7) 4.0 x10^3/uL (1.8-7.7) Lymphocytes # (Auto) 1.1 x10^3/uL (1.0-4.8) 0.9 x10^3/uL (1.0-4.8) Monocytes # (Auto) 0.5 x10^3/uL (0.0-1.1) 0.5 x10^3/uL (0.0-1.1) Eosinophils # (Auto) 0.0 x10^3/uL (0.0-0.7) 0.0 x10^3/uL (0.0-0.7) Basophils # (Auto) 0.0 x10^3/uL (0.0-0.2) 0.0 x10^3/uL (0.0-0.2) D-Dimer (Amie) 0.71 ug/mlFEU (0.00-0.50) 0.65 ug/mlFEU (0.00-0.50) Sodium Level 135 mmol/L (136-145) Potassium Level 3.5 mmol/L (3.5-5.1) Chloride Level 98 mmol/L (98-107) Carbon Dioxide Level 28 mmol/L (21-32) Anion Gap 9 (6-14) Blood Urea Nitrogen 10 mg/dL (8-26) Creatinine 0.9 mg/dL (0.7-1.3) Estimated GFR (Cockcroft-Gault) 91.3 BUN/Creatinine Ratio 11 (6-20) Glucose Level 89 mg/dL (70-99) Lactic Acid Level 1.1 mmol/L (0.4-2.0) Calcium Level 8.2 mg/dL (8.5-10.1) Total Bilirubin 0.6 mg/dL (0.2-1.0) Aspartate Amino Transf (AST/SGOT) 34 U/L (15-37) Alanine Aminotransferase (ALT/SGPT) 36 U/L (16-63) Alkaline Phosphatase 60 U/L (46-116) Total Protein 7.4 g/dL (6.4-8.2) Albumin 3.3 g/dL (3.4-5.0) Albumin/Globulin Ratio 0.8 (1.0-1.7) Urine Collection Type Void Urine Color Ivone Urine Clarity Clear Urine pH 6.0 (<5.0-8.0) Urine Specific [place]asper 1.025 (1.000-1.030) Urine Protein 30 mg/dL (NEG-TRACE) Urine Glucose (UA) Negative mg/dL (NEG) Urine Ketones (Stick) >=80 mg/dL (NEG) Urine Blood Negative (NEG) Urine Nitrite Positive (NEG) Urine Bilirubin Small (NEG) Urine Urobilinogen Dipstick 4.0 mg/dL (0.2 mg/dL) Urine Leukocyte Esterase Small (NEG) Urine RBC 0 /HPF (0-2) Urine WBC 5-10 /HPF (0-4) Urine Squamous Epithelial Cells None /LPF Urine Bacteria Many /HPF (0-FEW) Urine Mucus Slight /LPF Brief Hospital Course Mr Roberts is a 44yo M w/ PMHx morbid obesity, autism spectrum disorder who comes to ED c/o shortness of breath. Tested positive for COVID 19 last 08/11/2020 at a [facility], was informed about the results on 08/13/2020. He has noted fever, decreased appetite, shortness of breath and cough for the last week. The patient was brought into the hospital by his father due to fever. No N/V/D or abdominal pain. No chest pain. CTPA with bilateral patchy ground-glass infiltrates with adenopathy and incidental fatty liver and fatty infiltration of pancreas noted as well. Labs with WBC 5.9, hemoglobin 14.3 and platelets 136. LFTs are normal. Albumin 3.3. D dimer mildly elevated. UA with positive LE and nitrites. RR 26/min and temp 100.3F in ED. Afebrile overnight. No O2 requirements. After discussion with him and his family and is in formal diagnosis of autism spectrum disorder not having been employed since age 19 despite attempting to be employed he and they would feel more comfortable with him at home and as he has no O2 needs I am amenable to this with aspirin and sitting for discharge. I would be remiss if he did not have a referral to [facility] for formal diagnosis as he is not been employable for 25 years likely due to his mental health. This would deem him permanently disabled. A/P Abnormal CT chest - COVID 19 related Fevers - COVID 19 related. Will treat expectantly COVID 19 - with pneumonia. No hypoxia, will monitor. thromboprophylaxis. Consult Pulm Fatty liver - likely related to weight Elevated d dimer Autism spectrum disorder - mild, will give prn lorazepam for anxiety related to this Morbid obesity - counseled on weight loss, diet exercise Sepsis - due to COVID 19 pneumonia. Will treat expectantly, monitor for O2 desaturations UTI in male - will d/c on cefdinir 14 caps Greater than 30 minutes spent on d/c Discharge Information Condition at Discharge: Improved Follow Up: Weeks (2) Disposition/Orders: D/C to Home Scheduled Aspirin (Aspirin Ec) 81 Mg Tablet.dr, 1 TAB PO DAILY for COVID 19 for 30 Days, #30 Ref 0 Prescribed by: ROME LANDIS MD on 08/17/201352 Cefdinir (Cefdinir) 300 Mg Capsule, 1 CAP PO BID for Pneumonia for 7 Days, #14 Prescribed by: ROME LANDIS MD on 08/17/201352 Info (No Known Medications Prior To Admisstion) Each, 1 EACH MC DAILY for ., (Reported) Entered as Reported by: YANELIS BULLOCK on 08/17/20141 Last Action: New Order on 08/17/20141 by YANELIS BULLOCK Zinc Sulfate (Orazinc) 220 Mg Capsule, 220 MG PO DAILY for COVID 19 for 30 Days, #30 Prescribed by: ROME LANDIS MD on 08/17/201352 Justicifation of Admission Dx: Justifications for Admission: Justification of Admission Dx: Yes Comminuty Aquired Pneumonia: Respiratory Findings ROME LANDIS MD Aug 17, 2020 14:07
[2020-08-17 14:11] LABS: ALBUMIN/GLOBULIN RATIO 0.7 (1.0-1.7); CREATININE 0.7 mg/dL (0.7-1.3); POTASSIUM 3.1 mmol/L (3.5-5.1); TOTAL BILIRUBIN 0.7 mg/dL (0.2-1.0); TOTAL PROTEIN 7.1 g/dL (6.4-8.2)
[2020-08-17] MEDS ORDERED: POTASSIUM CHLORIDE 20 MEQ TABLET.ER. PO ONE ×2 (14:29→14:30)
[2020-08-17 15:13] VITALS: BP 132/74
--- NOTE | 2020-08-17 16:30 | NUR ---
Discharge Note: [facility] Discharge instructions and discharge home medications reviewed with Patient and Parents and a copy given. All questions have been answered and understanding verbalized. Patient and family given discharge instructions and safety measures for positive COVID-19. Teaching provided for new medications; aspirin, zinc, and cefdinir. Discontinued lines and drains: Peripheral IV intact. Patient discharged to Home or Self Care with Self via Wheelchair
[2020-08-17] MEDS ORDERED: cefTRIAXone IV Push 1 GM VIAL. IVP SCH (17:30)
[2020-08-17] MEDS ORDERED: LACTOBACILLUS RHAMNOSUS GG 1 CAPSULE. PO SCH (21:00)
== END 2020-08-17 17:04 | disposition home or self-care (01) | DRG 871 ==
LOC: ER 13:19 → 6 SOUTH 17:43
PROVIDERS: ADMIT Internal Medicine; ATTEND Internal Medicine
DX: A41.89 Other specified sepsis (principal); U07.1 COVID-19; J12.89 Other viral pneumonia; N39.0 Urinary tract infection, site not specified; F84.0 Autistic disorder; Z79.899 Other long term (current) drug therapy; E66.01 Morbid (severe) obesity due to excess calories; Z68.35 Body mass index [BMI] 35.0-35.9, adult; K76.0 Fatty (change of) liver, not elsewhere classified
CPT/HCPCS: 36415; 71045; 71275; 74177; 80053; 81001; 83605; 85025; 85379; 87086; 90471; 90686; 94618; J0696; J1650; J7030; Q9967; G0378